=== PATIENT | male | born 1970 | race Caucasian/White ===

== ENCOUNTER 2018-05-04 16:02 | Emergency (ER) | payer SELFPAY, OTHER ==
[2018-05-04] MEDS: HYDROcodone/APAP 5/325MG 1 TAB TABLET PO (16:24)
[2018-05-04] MEDS: NAPROXEN 500 MG TABLET PO (16:24)
== END 2018-05-04 16:32 | disposition home or self-care (01) ==
LOC: ER 16:02
DX: H72.91 Unspecified perforation of tympanic membrane, right ear (principal); Z90.81 Acquired absence of spleen
CPT/HCPCS: 99283